=== PATIENT | female | born 1980 | race Caucasian/White ===

== ENCOUNTER 2018-04-26 22:06 | Emergency (ER) | payer OTHER ==
[~2018-04-26] VITALS: Ht 165.1 cm; Wt 86.2 kg
[2018-04-26 22:41] LABS: ABSOLUTE BASOPHIL COUNT 0 /CUMM (0.0-0.2); ABSOLUTE EOSINOPHIL COUNT 0.1 /CUMM (0.0-0.7); ABSOLUTE GRANULOCYTE CT 4.5 /CUMM (1.4-6.5); ABSOLUTE LYMPH COUNT 2.8 /CUMM (1.2-3.4); ABSOLUTE MONOCYTE COUNT 0.3 /CUMM (0.10-0.60); BASOPHIL % 0.5 % (0.0-2.0); EOSINOPHIL % 1.5 % (0-5); GRANULOCYTE % 58.2 % (42.2-75.2); HEMATOCRIT 37.8 % (37-47); MEAN CORPUSCULAR HGB 29.7 PG (27.0-31.0); MEAN CORPUSCULAR HGB CONC 33.8 G/DL (33.0-37.0); MEAN CORPUSCULAR VOLUME 87.9 FL (81.0-99.0); MEAN PLATELET VOLUME 7.8 FL (7.4-10.4); PLATELET COUNT 287 /CUMM (130-400); RBC DISTRIBUTION WIDTH 14.4 % (11.5-14.5); WHITE BLOOD CELL COUNT 7.8 /CUMM (4.8-10.8)
--- NOTE | 2018-04-26 22:51 | ED GI/GU/ABDOMINAL COMPLAINT ---
History of Present Illness General Chief Complaint: Abdominal Pain/Flank Pain Stated Complaint: ABD PAIN X ONE HOUR PER PT Source: patient Exam Limitations: no limitations Vital Signs & Intake/Output Vital Signs & Intake/Output Vital Signs Date Time Temp Pulse Resp B/P B/P Pulse O2 O2 Flow FiO2 Mean Ox Delivery Rate 04/27 0034 98.0 80 18 128/80 98 Room Air 04/26 2212 97.9 81 18 131/82 99 Room Air ED Intake and Output 04/27 0000 04/26 1200 Intake Total 0 Output Total Balance 0 Intake, Oral 0 Patient 190 lb Weight Allergies Coded Allergies: moxifloxacin (From [employer]ELOX) (Intermediate, ANXIETY 04/26/18) Triage Note: PT TO ER C/C 10/10 LOWER ABD PRESSURE +NAUSEA. DENIES URINARY S/S. LMP 04/12/18. PT NOTABLY ANXIOUS Triage Nurses Notes Reviewed? yes ? n Is pt currently ? No Onset: Gradual Duration: hour(s): Timing: single episode today Quality/Severity: cramping, severe Severity Numbers: 8 Location: lower abdomen HPI: 38yo female with hx of anxiety presents to ED complaining of lower abdominal pain beginning approximately one hour prior to arrival. Pain is described as severe 8/10, cramping. Patient has had similar cramping in the past however never this severe. Patient to her SLUDGE FILTRATION OPERATOR for her lower cramping and had ultrasound performed however no abnormal findings. Patient reports that this year her periods have been associated with increased cramping. Patient was referred to a GI doctor through her SLUDGE FILTRATION OPERATOR however has not been able to follow up with him yet. She reports associated nausea with her pain. She denies fevers, chills, diarrhea, constipation, dysuria, hematuria, vaginal discharge. (Vee Murillo) Past History Travel History Traveled to [place] past 21 day No Medical History Any Pertinent Medical History? see below for history Psychiatric: anxiety, depression Surgical History Surgical History: non-contributory Psychosocial History What is your primary language Moroccan Tobacco Use: Never used Family History Hx Contributory? No (Vee Murillo) Review of Systems Review of Systems Constitutional: Reports: no symptoms. EENTM: Reports: no symptoms. Respiratory: Reports: no symptoms. Cardiovascular: Reports: no symptoms. GI: Reports: see HPI. Genitourinary: Reports: see HPI. Musculoskeletal: Reports: no symptoms. Skin: Reports: no symptoms. Neurological/Psychological: Reports: no symptoms. Hematologic/Endocrine: Reports: no symptoms. Immunologic/Allergic: Reports: no symptoms. All Other Systems: Reviewed and Negative (Irais VAN,Vee Oliva) Physical Exam Physical Exam General Appearance: well developed/nourished, no apparent distress, alert, awake Head: atraumatic, normal appearance Eyes: Bilateral: normal appearance. Ears, Nose, Throat, Mouth: hearing grossly normal Neck: normal inspection, supple, full range of motion Respiratory: normal breath sounds, no respiratory distress, lungs clear Cardiovascular: regular rate/rhythm Gastrointestinal: normal bowel sounds, soft, no organomegaly, suprapubic, RLQ, LLQ tenderness without gaurding Back: normal inspection, normal range of motion Extremities: normal range of motion Neurologic/Psych: awake, alert, oriented x 3 Skin: intact, normal color, warm/dry Core Measures ACS in differential dx? No Sepsis Present: No Sepsis Focused Exam Completed? No (Vee Murillo) Progress Differential Diagnosis: appendicitis, bowel obstruction, cholecystitis, gastritis, hernia, kidney stone, ovarian cyst, PID/cervicitis, SBO, UTI/pyelo Plan of Care: Orders Procedure Date/time Status URINALYSIS 04/26 2213 Complete LIPASE 04/26 2213 Complete HEPATIC FUNCTION PANEL 04/26 2213 Complete HUMAN BETA HCG SCREEN 04/26 2213 Complete CBC WITHOUT DIFFERENTIAL 04/26 2213 Complete BASIC METABOLIC PANEL 04/26 2213 Complete AMYLASE 04/26 2213 Complete Laboratory Tests 04/26/182231: Anion Gap 12, Estimated GFR > 60, BUN/Creatinine Ratio 26.3 H, Glucose 106 H, Calcium 8.9, Total Bilirubin 0.3, Direct Bilirubin 0.1, AST 11 L, ALT 24, Alkaline Phosphatase 53, Total Protein 7.5, Albumin 4.5, Amylase 68, Lipase 97, Total Beta HCG NEGATIVE, CBC w Diff NO MAN DIFF REQ, RBC 4.30, MCV 87.9, MCH 29.7, MCHC 33.8, RDW 14.4, MPV 7.8, Gran % 58.2, Lymphocytes % 35.9, Monocytes % 3.9, Eosinophils % 1.5, Basophils % 0.5, Absolute Granulocytes 4.5, Absolute Lymphocytes 2.8, Absolute Monocytes 0.3, Absolute Eosinophils 0.1, Absolute Basophils 0 04/26/18 2224: Urine Color YEL, Urine Clarity CLEAR, Urine pH 6.0, Ur Specific [place] 1.025, Urine Protein NEG, Urine Ketones TRACE H, Urine Nitrite NEG, Urine Bilirubin NEG, Urine Urobilinogen 0.2, Ur Leukocyte Esterase NEG, Ur Microscopic EXAM NOT REQUIRED, Urine Hemoglobin NEG, Urine Glucose NEG I recommended CT scan with IV contrast however patient declines IV contrast dye, she is worried that it will react with her Abilify. I told the patient that this is unlikely however she prefers dry CT scan. I informed her that this was less sensitive for infectious and inflammatory pathology, she understands and will continue with dry CT scan. Patient also declined pain medication here in the ED. CT scan shows trace amount of fluid surrounding the patient's uterus. No other acute abnormality. Given these findings patient follow up with her SLUDGE FILTRATION OPERATOR. Patient reports she heard he had a Pap smear, speculum exam, swabs performed her SLUDGE FILTRATION OPERATOR last week. She will bring copy of CT to SLUDGE FILTRATION OPERATOR for further assessment. Patient in no acute distress, vital signs are stable, she is nontoxic-appearing. The patient agrees with the plan of care. Diagnostic Imaging: Viewed by Me: CT Scan. Discussed w/RAD: CT Scan. Radiology Impression: PATIENT: IDRIS STEINBERG PRESENT AGE: 38 PATIENT ACCOUNT NO: [id number] : 79 LOCATION: [facility] ORDERING PHYSICIAN: Vee VAN SERVICE DATE: 04/26/18 EXAM TYPE: CAT - CT ABD & PELVIS W/O IV CONTRAS EXAMINATION: CT ABDOMEN AND PELVIS WITHOUT CONTRAST CLINICAL INFORMATION: Lower abdominal pain. Nausea. COMPARISON: None. TECHNIQUE: Contiguous axial thin section helical images of the abdomen and pelvis were performed without oral or IV contrast. The data set was reformatted in the coronal and sagittal planes and reviewed on an independent workstation. DLP: 399 mGy-cm. FINDINGS: The visualized lung bases are clear. The visualized portions of the heart are unremarkable. The liver is of normal size and attenuation without focal lesions nor intrahepatic biliary ductal dilation. A normal gallbladder is identified. There is no wall thickening or discernible pericholecystic fluid. The spleen, pancreas, adrenal glands are unremarkable. Both kidneys are of normal size and attenuation without hydronephrosis or nephrolithiasis. There is trace free fluid about the inferior tip of the right lobe of the liver. There is neither mesenteric nor retroperitoneal lymphadenopathy. Normal unopacified loops of small and large bowel are identified. There is a fluid attenuation focus present posterior and superior to the uterus.. The urinary bladder is unremarkable. There is neither pelvic nor inguinal lymphadenopathy. Bone windows: Neither sclerotic nor lytic bone lesions are identified. IMPRESSION: Fluid attenuation posterior and superior to the uterus of uncertain etiology. This does not appear to be free fluid as it would be more dependence. This could correspond to a cystic structure or loculated fluid. Consider correlation with pelvic ultrasound for further tissue characterization. Trace free fluid inferior to the right lobe of the liver. DICTATED BY: Ubaldo Shetty MD DATE/TIME DICTATED:04/27/181 RAILROAD CAR CLEANING SUPERVISOR:FIDENCIO DATE/TIME TRANSCRIBED:04/27/181 CONFIDENTIAL, DO NOT COPY WITHOUT APPROPRIATE AUTHORIZATION. <Electronically signed in Other Vendor System> SIGNED BY: Ubaldo Shetty MD 04/27/18 0009 Initial ED EKG: none (Irais VAN,Vee Oliva) Departure Departure Disposition: HOME OR SELF CARE Condition: Stable Clinical Impression Primary Impression: Abdominal pain Qualifiers: Abdominal location: lower abdomen, unspecified Qualified Code: R10.30 - Lower abdominal pain, unspecified Secondary Impressions: Nausea Referrals: Ulises Long MD (PCP/Family) Additional Instructions: Follow up with your SLUDGE FILTRATION OPERATOR, bring copy of CT scan results. Take ibuprofen 800mg up to three times a day for pain. Return with worsening symptoms or concerns. Please note that there might be incidental findings in your evaluation that are unrelated to the current emergency department visit. Please notify your primary care doctor about this emergency department visit in order to obtain and review all of the testing performed so that these incidental findings can be monitored as needed. If you had an x-ray performed, please understand that some fractures may not be seen on the initial set of x-rays. If your symptoms persist you might need a repeat set of x-rays to check for such a fracture. If you had a laceration evaluated, please understand that foreign bodies such as glass or wood may not be visible to the naked eye or on plain x-rays. If the wound becomes red, swollen, increasingly more painful or if there is any drainage from the wound, please have it reevaluated by a physician for the possibility of a retained foreign body. If you're unable to follow up as outlined in the discharge instructions please return to the emergency department. Thank you for choosing the [facility] Emergency Department for your care. It was a pleasure to serve you today. Departure Forms: Customer Survey General Discharge Information (Irais VAN,Vee Oliva) PA/CLOTHING WORKER Co-Sign Statement Statement: ED Attending supervision documentation- [x] I have reviewed the ED Record and agree with the PA's/CLOTHING WORKER's documentation. (Edi CHEUNG,Vincenzo Rebollar)
--- NOTE | 2018-04-27 00:09 | CT SCAN REPORT ---
EXAMINATION: CT ABDOMEN AND PELVIS WITHOUT CONTRAST CLINICAL INFORMATION: Lower abdominal pain. Nausea. COMPARISON: None. TECHNIQUE: Contiguous axial thin section helical images of the abdomen and pelvis were performed without oral or IV contrast. The data set was reformatted in the coronal and sagittal planes and reviewed on an independent workstation. DLP: 399 mGy-cm. FINDINGS: The visualized lung bases are clear. The visualized portions of the heart are unremarkable. The liver is of normal size and attenuation without focal lesions nor intrahepatic biliary ductal dilation. A normal gallbladder is identified. There is no wall thickening or discernible pericholecystic fluid. The spleen, pancreas, adrenal glands are unremarkable. Both kidneys are of normal size and attenuation without hydronephrosis or nephrolithiasis. There is trace free fluid about the inferior tip of the right lobe of the liver. There is neither mesenteric nor retroperitoneal lymphadenopathy. Normal unopacified loops of small and large bowel are identified. There is a fluid attenuation focus present posterior and superior to the uterus.. The urinary bladder is unremarkable. There is neither pelvic nor inguinal lymphadenopathy. Bone windows: Neither sclerotic nor lytic bone lesions are identified. IMPRESSION: Fluid attenuation posterior and superior to the uterus of uncertain etiology. This does not appear to be free fluid as it would be more dependence. This could correspond to a cystic structure or loculated fluid. Consider correlation with pelvic ultrasound for further tissue characterization. Trace free fluid inferior to the right lobe of the liver.
[2018-04-27 00:34] VITALS: BP 128/80
== END 2018-04-27 00:40 ==
LOC: ERH 22:06
PROVIDERS: Pediatrics
DX: R10.31 Right lower quadrant pain (principal); R10.32 Left lower quadrant pain; R11.0 Nausea
CPT/HCPCS: 74176; 81003